=== PATIENT | male | born 1955 | race Caucasian/White ===

== ENCOUNTER 2022-01-18 01:36 | Inpatient (IN) | payer MEDICARE, BC ==
[2022-01-18 02:47] LABS: ESTIMATED GFR 82 mL/min (>60)
[2022-01-18] MEDS ORDERED: Vancomycin 1 GM SDV ONE (03:16)
[2022-01-18] MEDS: Meropenem 1 GM in Sodium Chloride 0.9% 100 ML IV SCH ×3 (03:35→19:46)
[2022-01-18] MEDS ORDERED: Ondansetron 4 MG/2 ML SDV IVPUSH ONE (04:08)
[2022-01-18] MEDS ORDERED: Ondansetron 4 MG/2 ML SDV IVPUSH PRN (08:41)
[2022-01-18] MEDS: Pantoprazole 40 MG Tab.CR PO SCH (10:33)
[2022-01-18] MEDS: Acetaminophen 325 MG Tab PO PRN ×2 (10:33→21:22)
[2022-01-18] MEDS: NS + KCl 20mEq/L 1,000 ML IV SCH (11:40)
[2022-01-18] MEDS: POSACONAZOLE 100 MG PO SCH (19:00)
[2022-01-18] MEDS: Acyclovir 200 MG Cap PO SCH (21:23)
[2022-01-19] MEDS: NS + KCl 20mEq/L 1,000 ML IV SCH ×2 (00:33→15:25)
[2022-01-19] MEDS: Meropenem 1 GM in Sodium Chloride 0.9% 100 ML IV SCH ×3 (02:33→17:58)
[2022-01-19] MEDS ORDERED: Magnesium Sulfate/Water 2 GM in Premix Bag 1 BAG IV ONE (06:03)
[2022-01-19] MEDS: Acetaminophen 325 MG Tab PO PRN (07:16)
[2022-01-19] MEDS: Pantoprazole 40 MG Tab.CR PO SCH (08:16)
[2022-01-19] MEDS: Acyclovir 200 MG Cap PO SCH ×2 (08:17→21:13)
[2022-01-19] MEDS: Allopurinol 300 MG Tab PO SCH (08:17)
[2022-01-19] MEDS: POSACONAZOLE 100 MG PO SCH (08:20)
[2022-01-19] MEDS: Sodium Chloride 0.9% 250 ML IV SCH (10:51)
[2022-01-19] MEDS: Vancomycin 1 GM, Vancomycin 250 MG in Sodium Chloride 0.9% 250 ML IV SCH (13:16)
[2022-01-20] MEDS: Vancomycin 1 GM, Vancomycin 250 MG in Sodium Chloride 0.9% 250 ML IV SCH ×2 (01:56→13:53)
[2022-01-20] MEDS: Meropenem 1 GM in Sodium Chloride 0.9% 100 ML IV SCH ×3 (03:43→18:11)
[2022-01-20] MEDS: NS + KCl 20mEq/L 1,000 ML IV SCH (03:45)
[2022-01-20] MEDS: oxyCODONE 5 MG Tab PO PRN (06:05)
[2022-01-20] MEDS ORDERED: Magnesium Sulfate/Water 2 GM in Premix Bag 1 BAG IV ONE (07:07)
[2022-01-20] MEDS: Sodium Chloride 0.9% 250 ML IV SCH (09:05)
[2022-01-20] MEDS: Pantoprazole 40 MG Tab.CR PO SCH (09:10)
[2022-01-20] MEDS: Allopurinol 300 MG Tab PO SCH (09:10)
[2022-01-20] MEDS: Acyclovir 200 MG Cap PO SCH ×2 (09:10→20:57)
[2022-01-20] MEDS: POSACONAZOLE 100 MG PO SCH (09:11)
[2022-01-21] MEDS: Vancomycin 1 GM, Vancomycin 250 MG in Sodium Chloride 0.9% 250 ML IV SCH ×2 (00:59→12:12)
[2022-01-21] MEDS: Meropenem 1 GM in Sodium Chloride 0.9% 100 ML IV SCH ×3 (02:53→18:08)
[2022-01-21] MEDS: Allopurinol 300 MG Tab PO SCH (08:06)
[2022-01-21] MEDS: oxyCODONE 5 MG Tab PO PRN (08:07)
[2022-01-21] MEDS: Pantoprazole 40 MG Tab.CR PO SCH (08:07)
[2022-01-21] MEDS: Acyclovir 200 MG Cap PO SCH ×2 (08:07→21:09)
[2022-01-21] MEDS: POSACONAZOLE 100 MG PO SCH (08:08)
[2022-01-21] MEDS ORDERED: Polyethylene Glycol 3350 Powder 17 GM Packet PO PRN (21:22)
[2022-01-22] MEDS: Vancomycin 1 GM, Vancomycin 250 MG in Sodium Chloride 0.9% 250 ML IV SCH ×2 (00:50→13:09)
[2022-01-22] MEDS: Meropenem 1 GM in Sodium Chloride 0.9% 100 ML IV SCH ×3 (02:27→17:49)
[2022-01-22] MEDS: Pantoprazole 40 MG Tab.CR PO SCH (08:17)
[2022-01-22] MEDS: Acyclovir 200 MG Cap PO SCH ×2 (08:17→21:17)
[2022-01-22] MEDS: Allopurinol 300 MG Tab PO SCH (08:17)
[2022-01-22] MEDS: POSACONAZOLE 100 MG PO SCH (08:35)
[2022-01-22] MEDS: Potassium Chloride 20 MEQ Tab.ER PO SCH (16:29)
[2022-01-23] MEDS: Vancomycin 1 GM, Vancomycin 250 MG in Sodium Chloride 0.9% 250 ML IV SCH ×2 (01:04→13:17)
[2022-01-23] MEDS: Meropenem 1 GM in Sodium Chloride 0.9% 100 ML IV SCH ×4 (02:13→19:27)
[2022-01-23] MEDS: Acyclovir 200 MG Cap PO SCH ×2 (09:04→21:02)
[2022-01-23] MEDS: Potassium Chloride 20 MEQ Tab.ER PO SCH (09:04)
[2022-01-23] MEDS: Pantoprazole 40 MG Tab.CR PO SCH (09:04)
[2022-01-23] MEDS: Allopurinol 300 MG Tab PO SCH (09:05)
[2022-01-23] MEDS: POSACONAZOLE 100 MG PO SCH (09:05)
[2022-01-23] MEDS ORDERED: Furosemide 20 MG/2 ML VIAL IVPUSH ONE (15:00)
[2022-01-24] MEDS: Vancomycin 1 GM, Vancomycin 250 MG in Sodium Chloride 0.9% 250 ML IV SCH ×2 (00:59→14:12)
[2022-01-24] MEDS: Meropenem 1 GM in Sodium Chloride 0.9% 100 ML IV SCH ×3 (02:38→18:52)
[2022-01-24] MEDS: Allopurinol 300 MG Tab PO SCH (08:51)
[2022-01-24] MEDS: Pantoprazole 40 MG Tab.CR PO SCH (08:51)
[2022-01-24] MEDS: Acyclovir 200 MG Cap PO SCH ×2 (08:51→20:41)
[2022-01-24] MEDS: POSACONAZOLE 100 MG PO SCH (08:52)
[2022-01-24] MEDS: Potassium Chloride 20 MEQ Tab.ER PO SCH (08:52)
[2022-01-24] MEDS: Furosemide 20 MG/2 ML VIAL IVPUSH SCH (11:02)
[2022-01-24] MEDS: Sodium Chloride 0.9% 250 ML IV SCH (19:56)
[2022-01-25] MEDS: Vancomycin 1 GM, Vancomycin 250 MG in Sodium Chloride 0.9% 250 ML IV SCH (01:09)
[2022-01-25] MEDS: Meropenem 1 GM in Sodium Chloride 0.9% 100 ML IV SCH ×2 (02:45→10:14)
[2022-01-25] MEDS: Potassium Chloride 20 MEQ Tab.ER PO SCH (08:10)
[2022-01-25] MEDS: Pantoprazole 40 MG Tab.CR PO SCH (08:10)
[2022-01-25] MEDS: Allopurinol 300 MG Tab PO SCH (08:10)
[2022-01-25] MEDS: Furosemide 20 MG/2 ML VIAL IVPUSH SCH (08:10)
[2022-01-25] MEDS: Acyclovir 200 MG Cap PO SCH (08:10)
[2022-01-25] MEDS: POSACONAZOLE 100 MG PO SCH (10:21)
== END 2022-01-25 12:28 | disposition home or self-care (01) | DRG 808 ==
LOC: JD.ED 01:36 → JD.MS 07:51
PROVIDERS: ADMIT Internal Medicine; ATTEND Internal Medicine
PROC: 30233R1 Transfusion of Nonautologous Platelets into Peripheral Vein, Percutaneous Approach (ICD-10-PCS; principal; 2022-01-18)
PROC: 30233N1 Transfusion of Nonautologous Red Blood Cells into Peripheral Vein, Percutaneous Approach (ICD-10-PCS; 2022-01-18)
DX: D70.9 Neutropenia, unspecified (principal); D70.3 Neutropenia due to infection; J18.9 Pneumonia, unspecified organism; C92.00 Acute myeloblastic leukemia, not having achieved remission; E78.00 Pure hypercholesterolemia, unspecified; I10 Essential (primary) hypertension; C95.90 Leukemia, unspecified not having achieved remission; Z92.21 Personal history of antineoplastic chemotherapy; Z28.311 Partially vaccinated for COVID-19; R50.81 Fever presenting with conditions classified elsewhere; M10.9 Gout, unspecified; Z20.822 Contact with and (suspected) exposure to COVID-19; D63.0 Anemia in neoplastic disease; E66.9 Obesity, unspecified; D61.818 Other pancytopenia; E78.2 Mixed hyperlipidemia; E83.42 Hypomagnesemia; T45.1X5A Adverse effect of antineoplastic and immunosuppressive drugs, initial encounter; Z68.30 Body mass index [BMI] 30.0-30.9, adult; Y92.89 Other specified places as the place of occurrence of the external cause; Z79.899 Other long term (current) drug therapy; Z86.16 Personal history of COVID-19; Z90.49 Acquired absence of other specified parts of digestive tract
CPT/HCPCS: 36415; 71046; 80053; 81001; 83605; 83735; 85007; 85027; 86850; 86900; 86901; 86922 ×2; 94762; 96365; 96367; 96375; 99284; J2185; J2405; J3370; J3475; J7050; U0002; 36410; 36430; 80048; 80202; 84550; 85025; 87040; 87154; 93971-26-LT; 93971-LT; 97110-GP; 97162-GP; 97166-GO; A9270-GY; J1940; J3480; P9016; P9034; P9040